=== PATIENT | female | born 1965 | race Caucasian/White ===

== ENCOUNTER 2022-08-27 14:34 | Outpatient (CLI) | payer OTHER, SELFPAY | END 2022-08-27 14:35 | disposition home or self-care (01) | LOC: INJ CL 14:37 | PROVIDERS: Visit Provider Family Medicine | DX: M17.12 Unilateral primary osteoarthritis, left knee (principal); M25.562 Pain in left knee | CPT/HCPCS: 64454 ==

== ENCOUNTER 2022-09-10 12:52 | Outpatient (CLI) | payer OTHER, SELFPAY | END 2022-09-10 12:53 | disposition home or self-care (01) | PROVIDERS: PCP Physician Assistant; Visit Provider Family Medicine | DX: M17.12 Unilateral primary osteoarthritis, left knee (principal); G89.29 Other chronic pain; M25.562 Pain in left knee | CPT/HCPCS: 64624; J2250; J2405; J3010 ==

== ENCOUNTER 2022-09-24 13:58 | Outpatient (CLI) | payer OTHER, SELFPAY | END 2022-09-24 13:59 | disposition home or self-care (01) | LOC: INJ CL 13:58 | PROVIDERS: PCP Physician Assistant; Visit Provider Family Medicine | DX: M17.11 Unilateral primary osteoarthritis, right knee (principal); M25.561 Pain in right knee | CPT/HCPCS: 64454 ==

== ENCOUNTER 2022-10-01 12:28 | Outpatient (CLI) | payer OTHER, SELFPAY | END 2022-10-01 12:29 | disposition home or self-care (01) | PROVIDERS: PCP Physician Assistant; Visit Provider Family Medicine | DX: M17.11 Unilateral primary osteoarthritis, right knee (principal); G89.29 Other chronic pain; M25.561 Pain in right knee | CPT/HCPCS: 64624; J2250; J3010 ==